=== PATIENT | male | born 1990 | race Caucasian/White ===

== ENCOUNTER 2020-06-04 05:55 | Day surgery (SDC) | payer SELFPAY, OTHER ==
[2020-05-28 07:52] VITALS: BMI 31.4
[2020-06-04] VITALS (7 sets, daily range): BP systolic 119–138; BP diastolic 76–87; PULSE 1–83; RESP 14–18; TEMP 36.3–36.9; O2SAT 95–99; BMI 31.1
--- NOTE | 2020-06-04 06:19 | HP.PCM_ITS ---
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 Enrico Laguerre MD) Inguinal hernia of left side without obstruction or gangrene (Acute) Left groin pain (Acute) Surgical History (Updated 05/28/20 @ 07:51 by Ananya Lang) No history of previous surgery (Acute) Family History (Updated 05/28/20 @ 07:52 by Ananya Lang) Father Heart disease Social History (Updated 05/28/20 @ 08:[address] Enrico Laguerre MD) Smoking Status: Never smoker alcohol intake: never substance use type: does not use HPI HPI HPI: GILBERT ROA, is a 29 M who presents to the office today for surgical consultation regarding a left inguinal hernia. He is self-referred. He has had the bulge for at least a year and a half. Over the past couple weeks it is come more tender. He is still able to reduce it. 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 He otherwise denies any medical problems. HPI HPI HPI: GILBERT ROA, is a 29 M who presents to the office today for ROS General General: No weight change, appetite, fatigue, colon cancer, breast cancer or weakness HEENT HEENT: No difficulty swallowing, eye injury, eye surgery, swollen glands or hoarseness Endo Endocrine: No thyroid disease, diabetes mellitus, thyroid cancer, Hair loss, heat intolerance or cold intolerance Skin Skin: No rash or changing moles Breast Breast: No left breast lump, right breast lump, nipple discharge, breast pain, abnormal mammogram, abnormal US or breast enlargement Musc Musculoskeletal: No back problems, arthritis, rheumatoid arthritis, gout or joint pain Cardio Cardiovascular: No murmur, pacemaker, heart disease, atrial fibrillation, high blood pressure, heart attack, heart stent, palpitations, shortness of breat with exertion or chest pain Psych Psychiatric: No depression, anxiety or hearing voices Resp Respiratory: No shortness of breath, No sleep apnea, No cough, No COPD, No asth ma, No emphysema, No wheezing Gastro Gastrointestinal: Yes abdominal pain, No nausea or vomiting, No diarrhea, No constipation, No blood in stool, No acid reflux, No hemorrhoids, No ulcers, No gallbladder problem, No black,tarry stools Timothy Hematologic: No blood thinners, No blood disorders, No bleeding, No anemia, No blood clots Neuro Neurologic: No system reviewed and no additional complaints, except as docu, No as per HPI, No abnormal walking, No abnormal hearing, No abnormal movements, No abnormal speech, No behavioral changes, No burning sensations, No confusion, No seizure-like activity, No unsteadiness, No dizziness, No localized weakness, No frequent falls, No headache(s), No lack of coordination, No loss of vision, No memory loss, No numbness, No other visual disturbances, No radiating pain, No restless legs, No sensory deficit, No fainting, No tingling, No tremor(s), No weakness, No other Exam Const General: cooperative, healthy appearing, comfortable, no acute distress Nutritional Appearance: obese Orientation: awake [facility] Head: normal to inspection Chest Breast Palpation: No nipple discharge Resp Effort & Inspection: normal respiratory effort Auscultation: clear to auscultation bilaterally Cardio Rate: regular rate Rhythm: regular rhythm Heart Sounds: no murmurs GI Palpation: no hepatosplenomegaly Auscultation: normal bowel sounds Other: Testicles are descended without mass. Minimal give right groin. Obvious indirect left more hernia with bowel involvement which took some manipulation to reduce. Skin General: no rashes or lesions noted Neuro Cognition: normal cognition Extrem General: no calf tenderness Psych Affect: normal affect Assessment & Plan 1. Hernia K46.9 2. Inguinal hernia of left side without obstruction or gangrene K40.90 Plan Non- recurrent reducible indirect left inguinal hernia. 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 I recommend to him a laparoscopic left inguinal hernia repair with mesh. I have discussed the technique, benefit, risk and alternatives. We have compared to contrasted that to an open procedure. He has had an opportunity to ask and have questions answered. We will schedule and proceed at his discretion. I very much appreciate the kind opportunity of assisting with his surgical care. Cc: Dr. Antolin Laguerre M.D., F.A.C.S. Coding Level of Care Code Off vis,new,level 2 Diagnoses Hernia K46.9 Inguinal hernia of left side without obstruction or gangrene K40.90 I have re-examined the patient. There are no clinical changes since date of exam. Procedure Criteria Procedure Type: Elective COVID Risk Discussion: The surgeon/proceduralist and patient have discussed in detail the risk of exposure to and/or potential harm posed by the COVID-19 virus with having a surgery/procedure at this time versus the risk of delaying the surgery/procedure. It is not possible to know either the risk of delaying the surgery or procedure or chance of getting an infection with perfect accuracy, but a joint decision was made between the patient and the surgeon/proceduralist to proceed at this time with the scheduled surgery/procedure as indicated on the consent form.
--- NOTE | 2020-06-04 06:20 | DCINST_ITS ---
Discharge Diet: Light diet - advance as tolerated - if you have questions about your diet instructions, please talk to you doctor. Discharge Activity: May Not Drive - for 5-7 days or while taking narcotic pain medicine. May shower in (days): 1 Lifting Restrictions: 10 pounds Call your doctor if your incision/area has: Continuous Slow Oozing, Sudden Increased Bleeding, Increased Pain/ Swelling, Increased Redness, Foul Smelling Discharge Call your doctor if you observe: Fever of 101 or Higher Suture Line Care: Avoid Pulling/Pushing, Avoid Pinching/Bending Additional Dressing/Incision Instructions:: Change or remove dressing in 4 days. Leave steri-strips in place for 1 week. Allergies/Adverse Reactions: Allergies No Known Allergies Allergy (Unverified 06/04/20 06:18) Medications to take at Discharge Ascorbic Acid [Vitamin C] 1,000 mg PO DAILY 05/30/20 Hydrocodone Bitart/Apap 5-325 [[place] 5MG-325MG] 1 tab PO Q6H PRN PRN 2 Days #6 tab 06/04/20 The following prescriptions were given: Hydrocodone Bitart/Apap 5-325 [[place] 5MG-325MG] 1 tab PO Q6H PRN PRN 2 Days #6 tab PRN Reason: Pain Transmission Status: Received by [facility] Primary Care Physician: Antolin Couch DO [Primary Care Provider] - Test Results: Test results from this visit will be discussed in further detail at your follow- up appointment, if applicable. Please Follow Up With: Enrico Laguerre MD - [phone] When: Call to make an appointment to be seen in about 10 days.
[2020-06-04 06:24] LABS: Hematocrit 43.3 % (40-54); Hemoglobin 14.2 g/dL (13.0-16.5); Mean Corp Hgb Conc 32.8 g/dL (32-36); Mean Corpuscular Hgb 30.1 pg (27.0-32.0); Mean Corpuscular Volume 91.9 fL (80-94); Mean Platelet Vol. 8.2 fl (6.2-12.0); Platelet Count 305 K/mm3 (150-450); RBC Distribution Width CV 11.7 % (11.6-14.6); RBC Distribution Width SD 39.8 fl (35.1-43.9); Red Blood Count 4.71 M/mm3 (4.6-6.2)
[2020-06-04 06:40] LABS: Anion Gap 3 (5-15); BUN 18 mg/dL (7-18); BUN/Creat Ratio 21.9 RATIO (10-20); Chloride 109 mmol/L (98-107); Creatinine, Serum 0.82 mg/dL (0.70-1.30); EST Glomerular Filtration Rate 116 mL/min (>60); Est Glom Filt Rate - Afr Amer 140 mL/min (>60); Estimated Creatinine Clearance 131.72 ml/min; Glucose 93 mg/dL (74-106); Potassium 3.6 mmol/L (3.5-5.1); Sodium Level 141 mmol/L (136-145)
[2020-06-04] MEDS: Lactated Ringers 1,000 ML 100 ML IV ×2 (06:42→08:30)
[2020-06-04] MEDS: Cefazolin 2 GM in 0.9% Normal Saline 100 ML IV (07:24)
--- NOTE | 2020-06-04 08:27 | OP.PCM_ITS ---
Problem List (1) Inguinal hernia of left side without obstruction or gangrene Status: Acute Report of Operation Date of Procedure: 06/04/20 Pre-Operative Diagnosis: Indirect left inguinal hernia Post-Operative Diagnosis: Large sliding indirect left inguinal hernia Surgery/Procedure Performed:: Scopic left inguinal herniorrhaphy. Bard extra- large 3D max mesh: [id number], reference #[id number], expiry date 04/05/2024. Secure strap Lot # [id number], expiry date November 2021 Description of Surgical Findings:: Timeout and informed consent was obtained. 29-year-old gentleman was taken to the operating place upon the table underwent general endotracheal intubation esthesia. Ancef 2 g given intravenously preoperatively. 0.5% Marcaine was used as a local anesthetic. Doppler procedure total 30 cc was used. Skin sites were pre-anesthetized. A vertical infraumbilical incision was created. Holding sutures of 0 Vicryl placed. Varies needle inserted. Saline drop test performed. The abdomen was insufflated with CO2 to a pressure of 10 mmHg pressure. 10 mm trocar was inserted. 10 mm laparoscope inserted. No inserted trocar injuries. Under direct visualization 5 mm ports were placed in the left and right lower quadrant. A left ilioinguinal nerve block was performed under laparoscopic control. The right groin was solid and intact. A sliding indirect left inguinal hernia with sigmoid colon involvement was identified. The peritoneum superior lateral to the internal ring was incised and carried medially. Then the peritoneum was completely dissected free. This was extraordinarily tedious secondary to a very large hernia sac and dense adherence. Tedious blunt and sharp dissection was performed. Were needed hemostasis was attained with hemo-lock clips. A cord lipoma was identified and this was inverted as well. Eventually the cord structures and completely inverted sac was identified. The direct space indirect area and femoral area were completely bluntly dissected free. I then placed a extra-large Bard 3D max left mesh it was placed those to cover the defect area and very generously covered direct indirect and femoral areas. A very good positional lie was achieved. It was secured laterally superiorly and medially with secure strap. Very nice positioning was achieved. The peritoneum was then approximated to itself using a combination of hemo-lock clips and secure strap. Complete obliteration to the mesh was achieved. The abdomen was allowed to deflate of the CO2 through an antiviral valve. Trochars were removed. The fascia at the umbilicus was approximated interrupted 0 Vicryl [id number] suture. Skin edges proximal interrupted 4-0 Monocryl subdermal stitches. Steri-Strips Telfa and OpSite dressings applied. Sponge and instrument and needle counts were reported to the surgeon to be correct. Specimens none. Drains none. Blood loss minimal. The patient was taken to the recovery area in satisfactory addition without apparent complication Enrico Laguerre M.D., F.A.C.S. Type of Anesthesia:: General Anesthesiologist: Davian Lassiter
[2020-06-04] MEDS: HYDROcodone Bitartrate/Apap 5/325 Tablet PO (10:14)
== END 2020-06-04 12:01 | disposition home or self-care (01) ==
LOC: SDC 05:59 → AC 05:59
PROVIDERS: PCP Family Medicine; Referring Provider Surgery; Visit Provider Surgery
PROC: (CPT 49650; principal; 2020-06-04 07:10)
DX: K40.90 Unilateral inguinal hernia, without obstruction or gangrene, not specified as recurrent (principal); D17.6 Benign lipomatous neoplasm of spermatic cord; E66.9 Obesity, unspecified; Z68.31 Body mass index [BMI] 31.0-31.9, adult
CPT/HCPCS: 49650; 36415; 80048; 85027; 87635; G2023; J7120; C1781; J2405; U0003

== ENCOUNTER 2024-01-29 05:33 | Day surgery (SDC) | payer SELFPAY, OTHER ==
[2024-01-29] VITALS (7 sets, daily range): BP systolic 115–128; BP diastolic 75–93; PULSE 71–86; RESP 14–18; TEMP 36.3–36.6; O2SAT 96–100; BMI 32.5
[2024-01-29] MEDS: Lactated Ringers 1,000 ML 15 ML IV ×2 (06:20→09:37)
--- NOTE | 2024-01-29 06:46 | HP.PCM_ITS ---
History and Physical Date of Admission: 01/29/24 Visit Reasons: HERNIA SELF REFERRED Chief Complaint: hernia self referred Is patient in pain?: Yes Allergies No Known Allergies Allergy (Verified 12/17/23 14:02) Medications ascorbic acid (vitamin C) 1,000 mg tablet 1,000 mg PO DAILY 05/30/20 [History Confirmed 12/17/23] cholecalciferol (vitamin D3) 25 mcg (1,000 unit) capsule 25 mcg PO DAILY 12/17/23 [History Confirmed 12/17/23] [facility] Medical History Inguinal hernia of left side without obstruction or gangrene Left groin pain Surgical History History of inguinal hernia repair (~05/2020) Family History Father Heart disease Social History Smoking Status: Never smoker alcohol intake: never substance use type: does not use HPI HPI HPI: 33-year-old gentleman who I have most recently seen on June 14, 2020 and foll ow-up of a laparoscopic indirect left inguinal herniorrhaphy that I performed for him on June 04, 2020 and placed in extra-large Bard 3D max mesh. He had had a very large sliding left inguinal hernia identified at that time. He does very heavy work making pallets. The patient initially thought that he had a recurrence but he points to the right groin. He had forgotten that we had actually repaired his left inguinal hernia. He was lifting a wagon part that was quite heavy and developed immediate discomfort in the right groin. Over the past couple weeks he has noted progression of a palpable mass that he can reduce if he lies supine. My previous operative note suggest that the left inguinal hernia repair was very difficult and tedious due to very large hernia sac and dense fibrosis of the sac as well as a cord lipoma. ROS General General: No weight change, appetite, fatigue, colon cancer, breast cancer or weakness HEENT HEENT: No difficulty swallowing, eye injury, eye surgery, swollen glands or hoarseness Endo Endocrine: No thyroid disease, diabetes mellitus, thyroid cancer, Hair loss, hea t intolerance or cold intolerance Skin Skin: No rash or changing moles Musc Musculoskeletal: No back problems, arthritis, rheumatoid arthritis, gout or joint pain Cardio Cardiovascular: No murmur, pacemaker, heart disease, atrial fibrillation, high blood pressure, heart attack, heart stent, palpitations, shortness of breat with exertion or chest pain Psych Psychiatric: No depression, anxiety or hearing voices Resp Respiratory: No shortness of breath, No sleep apnea, No cough, No COPD, No asthma, No emphysema and No wheezing Gastro Gastrointestinal: Yes abdominal pain, No nausea or vomiting, No diarrhea, No constipation, No blood in stool, No acid reflux, No hemorrhoids, No ulcers, No gallbladder problem and No black,tarry stools Timothy Hematologic: No blood thinners, No blood disorders, No bleeding, No anemia and No blood clots Neuro Neurologic: No system reviewed and no additional complaints, except as documented, No as per HPI, No abnormal gait, No abnormal hearing, No abnormal movements, No abnormal speech, No behavioral changes, No burning sensations, No confusion, No convulsions, No disequilibrium, No dizziness, No localized weakness, No frequent falls, No headache(s), No lack of coordination, No loss of vision, No memory loss, No numbness, No other visual disturbances, No radicular pain, No restless legs, No sensory deficit, No syncope, No tingling, No tremor(s), No weakness and No other Exam Const General: cooperative, healthy appearing and comfortable [facility] Head: normal to inspection Eyes General: appearance normal, both eyes and all related structures Neck Neck: normal visual inspection Chest Chest palpation & inspection: normal inspection of the chest Resp Effort & Inspection: normal respiratory effort Auscultation: clear to auscultation bilaterally Cardio Rate: regular rate Rhythm: regular rhythm GI Palpation: soft and no hepatosplenomegaly Other: Well-healed incision at the umbilicus well-healed port site incisions Other: Testicle descended on the left. Nontender. Very solid left groin on clinical exam Testicle descended on the right but there is immediate fullness of the mid scrotum that I cannot reduce with the patient upright. With the patient's supine able to reduce a significant amount of tissue back into the abdomen. There is still some fibrofatty fullness of the groin area as a residual Skin General: no rashes or lesions noted Neuro General: patient alert, patient awake and patient oriented x3 Extrem General: no calf tenderness Psych Appearance: grossly normal Assessment and Plan Assessment and Plan (1) Inguinal hernia of right side without obstruction or gangrene: Status: Acute Plan: The patient actually does not have a recurrent hernia as his previous laparoscopic left inguinal hernia repair was done with a next large Bard Max mesh on the left and his current complaints are on the right. My operative notes make significant comment about the degree of difficulty that his left in guinal hernia repair was due to the dense fibrosis and large hernia sac. He otherwise however has had a good result. 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 I recommend him a laparoscopic right inguinal hernia repair with mesh. He is got a well-healed umbilical incision. We discussed the technique, benefit, risk, alternatives. He has had an opportunity to ask and have questions answered. We will schedule procedure at his discretion. I appreciate the ongoing opportunity of assisting with his surgical care. I have examined the patient and the H&P has been reviewed. There are no clinical changes since date of exam. Enrico Laguerre M.D., F.A.C.S.
--- NOTE | 2024-01-29 06:46 | EX.PCM.DISCH ---
Discharge Instructions Procedure General Surgery Diet Discharge Diet: Light diet - advance as tolerated (if you have questions about your diet instructions, please talk to you doctor.) Activity Discharge Activity: May Not Drive (for 3-5 days or while taking narcotic pain medicine.) May shower in (days): 1 Lifting Restrictions: 10 pounds Dressing / Incision Call your doctor if your incision/area has: Continuous Slow Oozing, Sudden Increased Bleeding, Increased Pain/ Swelling, Increased Redness and Foul Smelling Discharge Call your doctor if you observe: Fever of 101 or Higher Suture Line Care: Avoid Pulling/Pushing and Avoid Pinching/Bending Additional Dressing/Incision Instructions:: Change or remove dressing in 4 days. Leave steri-strips in place for 1 week. Follow Up Care Please Follow Up With: Enrico Laguerre MD When: Call [phone] to make an appointment to be seen in about 10 days. Test Results: Test results from this visit will be discussed in further detail at your follow-up appointment, if applicable. Discharge Plan Admission Attending Provider: Enrico Laguerre Primary Care Provider: Antolin Couch Discharge Orders/Prescriptions Prescriptions: No Action cholecalciferol (vitamin D3) 25 mcg (1,000 unit) capsule 25 mcg PO DAILY ascorbic acid (vitamin C) 1,000 MG tablet 1,000 mg PO DAILY Other Ambulatory Orders: Basic Metabolic Profile (BMP) (Routine) Timeframe: 20240121 Facility: [facility] - Location: Laboratory Ordered By: Dr. Enrico Laguerre CBC-Complete Blood Cnt No Diff (Routine) Timeframe: 20240121 Facility: [facility] - Location: Laboratory Ordered By: Dr. Enrico Laguerre Referrals / Follow Up: Antolin Couch DO [Primary Care Provider] - Disposition Disposition (needs filled in before D/C Order can be placed): Home, Self Care
[2024-01-29] MEDS: Cefazolin 2 GM in 0.9% Normal Saline (100mL Bag) 100 ML IV (07:20)
--- NOTE | 2024-01-29 08:31 | OP.PCM_ITS ---
Report of Operation Date of Procedure: 01/29/24 Pre-Operative Diagnosis: Symptomatic indirect right inguinal hernia Post-Operative Diagnosis: Same Surgery/Procedure Performed:: Laparoscopic right inguinal herniorrhaphy with Bard 3D max extra-large mesh Lot number [id number], reference [id number], expiry date 08/06/2028 Secure strap Lot number [id number], expiry date May 2025 Description of Surgical Findings:: Timeout informed consent was obtained. 33-year-old gentleman was taken to the operating placed supine on the table underwent general endotracheal intubation anesthesia. Ancef 2 g were given intravenously. The abdomen was sterilely pr epped and draped. 0.5% Marcaine was used as a local anesthetic. Skin sites were preanesthetized. A total of 30 cc was used. A vertical infraumbilical incision was created holding sutures of 0 Vicryl placed varies needle inserted saline drop test performed the abdomen was insufflated with CO2 to a pressure of 10 mmHg pressure. 10 mm trocar inserted. 10 mm laparoscope inserted. 5 mm trocars were placed on the right and left lower quadrant. Under laparoscopic assist visualization a ilioinguinal nerve block was performed on the right inspection revealed some adhesions of appendices epiploic cave from the sigmoid colon to the previous laparoscopic left inguinal hernia repair. No evidence of recurrence. There was an obvious indirect right inguinal defect. The peritoneum superior lateral to the internal ring on the right was incised carried immediately tediously the peritoneum was dissected free. Scar and fixation was encountered at the pubic tubercle from the previous repair from the left and dissection was performed only as far as at previous repair. The indirect sac was very large and had to be tediously stripped free and completely removed. There was some posterior fibrofatty tissue that also was diminished to a degree though I made no attempt to completely skeletonized that over the femoral vessels. Laterally I got good exposure as well. Then placed a extra- large Bard 3D max mesh so as to cover direct indirect and femoral areas. I felt that I had excellent coverage of all of this. Laterally superiorly and medially it was secured in place with secure strap. Again I felt that I had excellent coverage. The peritoneum was then reapproximated to itself using secure strap I got complete obliteration to the mesh. Very large sac again noted. The abdomen was allowed to deflated the CO2. The fascia at the umbilicus approximated with interrupted 0 Vicryl [id number] suture. Skin edges were approximated with interrupted 4 Monocryl subdermal stitches. Steri-Strips Telfa OpSite dressings applied. Sponge and instrument and needle counts were reported the surgeon to be correct. Specimens none. Drains none. Blood loss minimal. The patient was taken to the recovery room in satisfied condition without apparent complication Enrico Laguerre M.D., F.A.C.S. Surgeon: Enrico Laguerre Type of Anesthesia: General and Local Anesthesiologist: Marky Lama
[2024-01-29] MEDS: Bupivacaine Mpf 0.5% 30 ML VIAL (08:39)
[2024-01-29] MEDS: HYDROcodone Bitartrate/Apap 5/325 Tablet PO (09:37)
== END 2024-01-29 12:47 | disposition home or self-care (01) ==
LOC: SDC 05:35 → AC 05:36
PROVIDERS: PCP Family Medicine; Referring Provider Surgery; Visit Provider Surgery
PROC: (CPT 49650; principal; 2024-01-29 07:10)
DX: K40.90 Unilateral inguinal hernia, without obstruction or gangrene, not specified as recurrent (principal)
CPT/HCPCS: 49650; 00840; J7120; C1781; J2405